=== PATIENT | male | born 1990 | race Caucasian/White ===

== ENCOUNTER 2017-08-04 19:11 | Emergency (ER) | payer BC, OTHER, SELFPAY ==
[2017-08-04] MEDS ORDERED: HYDROcodone/Acetaminophen 5/325 mg Tablet ONE (19:42)
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
== END 2017-08-04 21:02 | disposition home or self-care (01) ==
LOC: ERS 19:11
DX: V86.99XA Unspecified occupant of other special all-terrain or other off-road motor vehicle injured in nontraffic accident, initial encounter; S43.101A Unspecified dislocation of right acromioclavicular joint, initial encounter
CPT/HCPCS: 70450; 71045; 72125; 86850; 86900; 86901

== ENCOUNTER 2018-12-29 10:58 | Emergency (ER) | payer OTHER, SELFPAY ==
[2018-12-29] MEDS ORDERED: Lidocaine 1% w/Epinephrine 1:100K 20 ML VIAL ONE (12:10)
== END 2018-12-29 13:08 | disposition home or self-care (01) ==
LOC: SCSER 10:58
DX: S56.423A Laceration of extensor muscle, fascia and tendon of right middle finger at forearm level, initial encounter (principal); W25.XXXA Contact with sharp glass, initial encounter
CPT/HCPCS: 99283; J2001

== ENCOUNTER 2018-12-31 10:45 | Outpatient (CLI) | payer OTHER, SELFPAY ==
[2018-12-31 15:32] LABS: Hemoglobin 15.8 g/dL (14.0-18.0); Mean Corpuscular HGB CONC 33.7 g/dL (32.0-36.0); Mean Corpuscular Hemoglobin 32.5 pg (27.0-31.0); Mean Corpuscular Volume 96.6 fL (78.0-98.0); Mean Platelet Volume 8.3 fL (7.4-10.4); Platelet Count 194 thou/uL (130-400); Red Blood Cell (RBC) Count 4.86 mill/uL (4.70-6.10); White Blood Cell (WBC) Count 6.5 thou/uL (4.8-10.8)
[2018-12-31 15:51] LABS: Anion Gap 10 mmol/L (10-20); BUN (Urea Nitrogen) 13 mg/dL (8.9-20.6); Calc. Creatinine Clearance 0 mL/min (70-130); Calcium 9.7 mg/dL (7.8-10.44); Carbon Dioxide 28 mmol/L (22-29); Chloride 104 mmol/L (98-107); Estimated GFR-MDRD 90; Glucose 81 mg/dL (70-105); Potassium 4.2 mmol/L (3.5-5.1); Sodium 138 mmol/L (136-145)
== END 2018-12-31 10:46 | disposition home or self-care (01) ==
LOC: LABBT 10:45
PROVIDERS: ATTEND Orthopaedic Surgery
DX: Z01.812 Encounter for preprocedural laboratory examination (principal); S66.322A Laceration of extensor muscle, fascia and tendon of right middle finger at wrist and hand level, initial encounter
CPT/HCPCS: 80048; 85027

== ENCOUNTER 2019-01-01 10:48 | Day surgery (SDC) | payer OTHER, SELFPAY ==
[2018-12-31 14:29] VITALS: BMI 28.0
[2019-01-01] MEDS ORDERED: Ondansetron PF 4 MG/2 ML Vial ONE (12:42)
[2019-01-01] MEDS ORDERED: PROPOFOL 200 MG/20 ML VIAL ONE (12:42)
[2019-01-01] MEDS ORDERED: Lidocaine 1% PF 5 ML VIAL ONE (12:42)
[2019-01-01] MEDS ORDERED: Bupivacaine HCl 0.5%/Epinephrine 1:200,000/PF 30 ml Vial ONE (12:48)
[2019-01-01] MEDS ORDERED: Neomycin-Polymyxin 1 ML AMP ONE (12:49)
[2019-01-01] MEDS ORDERED: Fentanyl 100 MCG/2 ML VIAL ONE (14:01)
--- NOTE | 2019-01-01 17:23 | OP ---
DATE OF PROCEDURE: 01/01/2019 PREOPERATIVE DIAGNOSIS: Laceration of the extensor tendon of the right middle finger. POSTOPERATIVE DIAGNOSIS: Laceration of the extensor tendon of the right middle finger. PROCEDURE PERFORMED: Repair of the extensor tendon of the right middle finger. ANESTHESIA: General. TECHNIQUE: The patient was given preoperative IV antibiotics, taken to the operating room, placed in the supine position. Satisfactory general anesthesia was performed. The right hand and upper extremity were sterilely prepped and draped in usual fashion. After exsanguination, tourniquet at the right forearm was raised to 200 mmHg. There was transverse laceration directly over the third metacarpal head of the right middle finger, was extended proximally and distally, ending up in a Z-type incision. The proximal and distal ends of the extensor tendon were located. The granulation tissue that had formed since the injury was removed and the tendon was repaired using 2-0 FiberWire in a Gisella type suture. This provided excellent repair of the ends of the extensor tendon. The 2-0 FiberWire was also used on the most radial and ulnar aspect of the tendon to provide additional strength to the repair, making sure that the suture knots were inside the tendon. The middle finger was then placed through a range of motion and had excellent repair of the extensor tendon. The wound was then irrigated with normal saline and closed using 3-0 Rapide. The wound was infiltrated with 10 mL of 0.5% Marcaine with epinephrine. Sterile dressing was applied along with an aluminum finger splint with the MP joint at approximately 45 degrees of flexion and the PIP and DIP joints in full extension. The tourniquet was released. The patient was awakened, extubated, and transferred to recovery room in stable condition. ESTIMATED BLOOD LOSS: None. COMPLICATIONS: None. TOURNIQUET TIME: 17 minutes. DISCHARGE MEDICATION: Tylenol No. 4 one every 4 to 6 hours as needed for pain, #40 with no refills. FOLLOWUP: Follow up in my office in 1 week. Job ID: [id number]
== END 2019-01-01 16:00 | disposition home or self-care (01) ==
LOC: SDC 10:48
PROVIDERS: ATTEND Orthopaedic Surgery
PROC: 0LQ70ZZ Repair Right Hand Tendon, Open Approach (ICD-10-PCS; principal; 2019-01-01)
DX: S66.322A Laceration of extensor muscle, fascia and tendon of right middle finger at wrist and hand level, initial encounter (principal); W25.XXXA Contact with sharp glass, initial encounter; W22.8XXA Striking against or struck by other objects, initial encounter
CPT/HCPCS: J0670; J0690; J2001; J2405; J2704; J3010; Q4049

== ENCOUNTER 2023-01-11 09:45 | Emergency (ER) | payer SELFPAY ==
[2023-01-11] MEDS ORDERED: Fluorescein Opthalmic Strip ONE (10:20)
[2023-01-11] MEDS ORDERED: Proparacaine 0.5% Opth 15 ML BOT ONE (10:20)
== END 2023-01-11 10:50 | disposition home or self-care (01) ==
LOC: ERS 09:45
DX: S05.02XA Injury of conjunctiva and corneal abrasion without foreign body, left eye, initial encounter (principal); H53.8 Other visual disturbances
CPT/HCPCS: 99283